=== PATIENT | female | born 1970 | race Caucasian/White ===

== ENCOUNTER 2017-08-04 19:17 | Emergency (ER) | payer OTHER ==
[~2017-08-04] VITALS: Ht 165.1 cm; Wt 72.3 kg
[2017-08-04 19:41] VITALS: Ht 165.1 cm; Wt 72.3 kg
[2017-08-04] MEDS ORDERED: ONDANSETRON 4 MG INJ IV STA (19:55)
[2017-08-04] MEDS ORDERED: SOD CHLORIDE 0.9% 1,000 ML IV STA (19:55)
--- NOTE | 2017-08-04 19:57 | ERD ---
ER Documentation Chief Complaint Chief Complaint C/O nausea, vomiting, diarhea since last night. Possible food poisoning HPI This is a 46-year-old female who is presenting with nausea, vomiting and diarrhea that started last night. She thinks that she could have gotten food poisoning. The patient ate a chicken bake from [employer] last night as well as a grapefruit. About an hour after eating, she started to feel the need to go to the bathroom. She initially started with a lot of gassy bowel movements. However throughout the night, that transition to diffuse watery light brown diarrhea. She did not notice any blood in her stool. The patient also endorses nausea with nonbilious nonbloody vomiting that also started last night. The patient reports that these have improved slightly, but she does now feel dehydrated. She does not endorse any changes to urination. She denies bleeding or burning or pain with urination. She has not been able to eat anything today secondary to her nausea. She has not been around anyone who has been sick or anyone who has had the flu. She does work here, but in the office. The patient denies any fever or chills. Aside from the nausea recently , she feels well. She would have, earlier, but she wanted to get through her workday first. The patient denies feeling sick recently. The patient has had no vision changes. He does endorse a mild generalized headache. The patient does not endorse neck or back pain. The patient denies lightheadedness or dizziness. The patient has had no chest pain or shortness of breath or trouble breathing. The patient has had no focal deficits. The patient has had no weakness or numbness or tingling to the face or extremities. ROS All systems reviewed and are negative except as per history of present illness. Allergies Allergies: Coded Allergies: No Known Allergy (Unverified , 08/04/17) PMhx/Soc Medical and Surgical Hx: pt denies Medical Hx, pt denies Surgical Hx History of Surgery: No Hx Neurological Disorder: No Hx Respiratory Disorders: No Hx Cardiac Disorders: No Hx Psychiatric Problems: No Hx Miscellaneous Medical Probl: No Hx Alcohol Use: No Hx Substance Use: No Hx Tobacco Use: No Smoking Status: Never smoker FmHx Family History: No coronary disease, No diabetes Physical Exam Vitals Vital Signs Date Time Temp Pulse Resp B/P Pulse Ox O2 Delivery O2 Flow Rate FiO2 08/04/17 19:41 98.1 113 18 124/77 97 Physical Exam Const: No apparent distress, well-developed, well-nourished Head: Normocephalic, Atraumatic Eyes: Normal Conjunctiva. Extraocular movements intact. Pupils equal, round and reactive to light ENT: Normal External Ears, Nose and Mouth. Neck: Full range of motion. No meningismus. Resp: Clear to auscultation bilaterally, No wheezes, rales or rhonchi Cardio: Regular rate and rhythm. No murmurs, rubs or gallops Abd: Soft, nontender, non distended. Normal bowel sounds Skin: No petechiae or rashes Back: No midline tenderness. No CVA tenderness Ext: No cyanosis, or edema Neur: Awake and alert, oriented 4. Cranial nerves intact. No facial droop. Normal strength, sensation and coordination. Psych: Normal Mood and Affect Result Diagram: 08/04/17195408/04/171954 Results 24 hrs Laboratory Tests Test 08/04/17 19:55 White Blood Count 11.410^3/ul Red Blood Count 5.6110^6/ul Hemoglobin 11.9g/dl Hematocrit 37.1% Mean Corpuscular Volume 66.1fl Mean Corpuscular Hemoglobin 21.2pg Mean Corpuscular Hemoglobin Concent 32.1g/dl Red Cell Distribution Width 17.0% Platelet Count 02281^3/UL Mean Platelet Volume 9.7fl Neutrophils % 77.2% Lymphocytes % 13.8% Monocytes % 7.0% Eosinophils % 1.2% Basophils % 0.4% Nucleated Red Blood Cells % 0.0/100WBC Neutrophils # 8.810^3/ul Lymphocytes # 1.610^3/ul Monocytes # 0.810^3/ul Eosinophils # 0.110^3/ul Basophils # 0.110^3/ul Nucleated Red Blood Cells # 0.010^3/ul Sodium Level 139mmol/L Potassium Level 3.8mmol/L Chloride Level 99mmol/L Carbon Dioxide Level 26mmol/L Anion Gap 18 Blood Urea Nitrogen 12mg/dl Creatinine 0.72mg/dl Glucose Level 130mg/dl Calcium Level 9.4mg/dl Total Bilirubin 0.9mg/dl Direct Bilirubin 0.00mg/dl Indirect Bilirubin 0.9mg/dl Aspartate Amino Transf (AST/SGOT) 26IU/L Alanine Aminotransferase (ALT/SGPT) 42IU/L Alkaline Phosphatase 95IU/L Total Protein 8.6g/dl Albumin 4.8g/dl Globulin 3.80g/dl Albumin/Globulin Ratio 1.26 Lipase 51U/L Current Medications Medications (Trade) Dose Ordered Sig/[place] Route PRN Reason Start Time Stop Time Status Last Admin Dose Admin Sodium Chloride (NS) 1,000 ml @ 1,000 mls/hr Q1H STAT IV 08/04/17 19:55 08/04/17 20:54 DC 08/04/17 20:00 Ondansetron HCl (Zofran Inj) 4 mg ONCE STAT IV 08/04/17 19:55 08/04/17 19:56 DC 08/04/17 20:00 Ketorolac Tromethamine (Toradol) 15 mg ONCE STAT IV 08/04/17 20:42 08/04/17 20:43 DC 08/04/17 20:54 Metoclopramide HCl (Reglan) 10 mg ONCE ONCE IV 08/04/17 21:00 08/04/17 21:01 DC Diphenhydramine HCl (Benadryl) 25 mg ONCE ONCE IV 08/04/17 21:00 08/04/17 21:01 DC 08/04/17 20:54 Procedures/MDM MDM The patient's presentation warrants further investigation. The patient presents with abdominal pain. I do have suspicion for gastroenteritis given her overall presentation. The patient does not have any evidence of peritonitis. The patient does not have any palpable pulsatile mass, and I have low suspicion for AAA. The patient does not have any left lower quadrant tenderness, and I have low suspicion for diverticulosis or diverticulitis. The patient does not have any right lower quadrant tenderness, and I have low suspicion for appendicitis. The patient does not have left upper quadrant tenderness. I have low suspicion for pancreatitis. The patient does not have any flank tenderness. He does not have gross hematuria. I have decreased suspicion for nephrolithiasis or renal colic. Does not have right upper quadrant tenderness, and I have low suspicion for gallstones, cholecystitis or biliary colic. The patient does not have clinical symptoms concerning for mesenteric ischemia or ischemic colitis. LABS The patient's blood work was obtained and reviewed. The patient's CBC shows mild leukocytosis and no significant left shift. The patient is afebrile and does not appear systemically ill. I do not suspect a systemic infection. The patient is mildly anemic today, this does not require emergent treatment. The patient's platelet count is unremarkable. The patient's CMP shows no signs of metabolic or electrolyte emergencies. The patient has unremarkable renal and hepatic function testing. The patient's lipase is negative. Patient did not provide us with a urine sample, but she does not endorse any urinary symptoms. TREATMENT/DISPOSITION The patient was treated with Toradol, Reglan and Benadryl for her headache with resolution. She was also given Zofran and IV fluids for her nausea and vomiting that also significantly improved. The patient will be discharged with a prescription for Zofran. At this time, I feel that the patient stable for discharge. The patient will need follow-up with his primary care physician in 2-3 days. The patient will be given strict precautions with which to return to the emergency department. The patient's blood pressure was elevated at greater than 120/80 while in the emergency department. The patient was otherwise stable with no evidence of hypertensive urgency or emergency or end organ damage. The patient does not require admission for blood pressure control. I have discussed with the patient the risks of hypertension. I have advised the patient to follow up with the primary care physician for outpatient monitoring and treatment for hypertension in 2-3 days. I have instructed the patient to return to the ER for any new or worsening symptoms including chest pain, shortness of breath, headache, blurred vision, confusion, nausea, vomiting or LOC. Disclaimer: Inadvertent spelling and grammatical errors are likely due to EHR/ dictation software use and do not reflect on the overall quality of patient care. Note that the electronic time recorded on this note does not necessarily reflect the actual time of the patient encounter. Departure Diagnosis: Primary Impression: Nausea and vomiting Vomiting type: unspecified Vomiting Intractability: non-intractable Qualified Code: R11.2 - Non-intractable vomiting with nausea, unspecified vomiting type Additional Impressions: Abdominal pain Abdominal location: generalized Qualified Code: R10.84 - Generalized abdominal pain Leukocytosis Leukocytosis type: unspecified Qualified Code: D72.829 - Leukocytosis, unspecified type Anemia Anemia type: unspecified type Qualified Code: D64.9 - Anemia, unspecified type Condition: KELECHI Ballesteros MD Aug 04, 2017 19:57
[2017-08-04 20:11] LABS: ALBUMIN 4.8 g/dl (3.3-4.9); ALBUMIN/GLOBULIN RATIO 1.26; BILIRUBIN,INDIRECT 0.9 mg/dl (0-1.1); BILIRUBIN,TOTAL 0.9 mg/dl (0.2-1.3); CALCIUM 9.4 mg/dl (8.4-10.2); CREATININE 0.72 mg/dl (0.44-1.00); POTASSIUM 3.8 mmol/L (3.5-5.1); TOTAL PROTEIN 8.6 g/dl (6.1-8.1)
[2017-08-04 20:14] LABS: BASOPHIL # 0.1 10^3/ul (0.0-0.1); BASOPHILS % 0.4 % (0.0-2.0); EOSINOPHILS # 0.1 10^3/ul (0.0-0.5); EOSINOPHILS % 1.2 % (0.0-7.0); HEMATOCRIT 37.1 % (37.0-47.0); HEMOGLOBIN 11.9 g/dl (12.0-16.0); LYMPHOCYTES # 1.6 10^3/ul (0.8-2.9); LYMPHOCYTES % 13.8 % (15.0-51.0); MEAN CORPUSCULAR HEMOGLOBIN 21.2 pg (29.0-33.0); MEAN CORPUSCULAR HGB CONC 32.1 g/dl (32.0-37.0); MEAN CORPUSCULAR VOLUME 66.1 fl (82.0-101.0); MEAN PLATELET VOLUME 9.7 fl (7.4-10.4); MONOCYTE # 0.8 10^3/ul (0.3-0.9); NEUTROPHIL # 8.8 10^3/ul (1.6-7.5); NEUTROPHILS % 77.2 % (39.0-77.0); PLATELET COUNT 342 10^3/UL (140-415); RED BLOOD COUNT 5.61 10^6/ul (4.20-5.40); WHITE BLOOD COUNT 11.4 10^3/ul (4.8-10.8)
[2017-08-04] MEDS ORDERED: KETOROLAC 15 MG INJ IV STA (20:42)
[2017-08-04] MEDS ORDERED: METOCLOPRAMIDE 10 MG INJ IV ONE (21:00)
[2017-08-04] MEDS ORDERED: DIPHENHYDRAMINE 50 MG INJ IV ONE (21:00)
[2017-08-04] MEDS ORDERED: ONDA4SOL2 PO (22:17)
[2017-08-04] MEDS ORDERED: ONDA4TAB8 PO (22:18)
== END 2017-08-04 22:17 | disposition home or self-care (01) ==
LOC: E/R 19:17
DX: R11.2 Nausea with vomiting, unspecified (principal); R10.84 Generalized abdominal pain; D72.829 Elevated white blood cell count, unspecified; D64.9 Anemia, unspecified
CPT/HCPCS: 36415; 80053; 83690; 85025; 96374; 96375; 99284; J1200; J1885; J2405; J7030